=== PATIENT | female | born 1970 | race Caucasian/White ===

== ENCOUNTER 2019-12-17 11:08 | Day surgery (SDC) | payer OTHER ==
[~2019-12-17] VITALS: Ht 170.2 cm; Wt 63.4 kg
[~2019-12-17 11:08] MED LIST: ACET325T14 PO; ALLERGY MEDS; CHOL10003 PO; IBUP200C8 PO; L.AC1CAP6 PO; SLEEPING PILL
[2019-12-17] MEDS ORDERED: INDOCYANINE GREEN 25 MG VIAL IV STA (11:14)
[2019-12-17] MEDS ORDERED: FENTANYL PF 250 MCG/5ML ONE (11:44)
[2019-12-17] MEDS ORDERED: MIDAZOLAM 1 MG/ML, 2ML ONE (11:44)
[2019-12-17 11:50] VITALS: BP 123/88
[2019-12-17 11:57] LABS: HCG UR SG 1.022 (1.003-1.030)
[2019-12-17] MEDS ORDERED: LACTATED RINGERS 1,000 ML IV SCH (12:00)
[2019-12-17] MEDS ORDERED: OXYcodone 5 MG/5 ML ORAL.SOL UDC PO PRN (12:00)
[2019-12-17] MEDS ORDERED: LABETALOL 5MG/ML, 20ML IV PRN (12:00)
[2019-12-17] MEDS ORDERED: HYDROmorphone 1 MG/ML, 1ML INJ IVPush PRN (12:00)
[2019-12-17] MEDS ORDERED: CHLORHEXIDINE 15 ML UDC MM ONE (12:00)
[2019-12-17] MEDS ORDERED: ACETAMINOPHEN 500 MG TABLET PO ONE (12:00)
[2019-12-17] MEDS ORDERED: SCOPOLAMINE 1MG PATCH TD SCH (12:00)
[2019-12-17] MEDS ORDERED: FENTANYL PF 100 MCG/2ML IV PRN (12:00)
[2019-12-17] MEDS ORDERED: PROMETHAZINE 25 MG/ML, 1ML IVPush PRN (12:00)
[2019-12-17] MEDS ORDERED: INDOCYANINE GREEN 25 MG VIAL ONE (12:00)
[2019-12-17] MEDS ORDERED: DIPHENHYDRAMINE 50 MG/ML, 1ML IVPush PRN (12:00)
[2019-12-17] MEDS ORDERED: ONDANSETRON 2MG/ML, 2ML IVPush PRN (12:00)
[2019-12-17] MEDS ORDERED: CHLORHEXIDINE 15 ML UDC ONE (12:03)
[2019-12-17] MEDS ORDERED: BUPIVACAINE/PF 0.5% ONE (12:22)
[2019-12-17] MEDS ORDERED: EPINEPHRINE 1 MG/ML, 1ML ONE (12:23)
[2019-12-17] MEDS ORDERED: PROPOFOL 10 MG/ML, 20ML ONE (12:49)
[2019-12-17] MEDS ORDERED: ONDANSETRON 2MG/ML, 2ML ONE ×2 (12:49→14:19)
[2019-12-17] MEDS ORDERED: NEOSTIGMINE 1 MG/ML, 10ML ONE (12:49)
[2019-12-17] MEDS ORDERED: DEXAMETHASONE 4 MG/ML, 1ML ONE (12:49)
[2019-12-17] MEDS ORDERED: CEFAZOLIN 1,000 MG ONE (12:49)
[2019-12-17] MEDS ORDERED: GLYCOPYRROLATE 0.2MG/1ML, 5ML ONE (12:49)
[2019-12-17] MEDS ORDERED: PROMETHAZINE 25 MG/ML, 1ML ONE (14:23)
[2019-12-17] MEDS ORDERED: MEPERIDINE/PF 25MG/ML,1ML ONE (14:23)
[2019-12-17] MEDS: MEPERIDINE/PF 25MG/0.5ML IVPush PRN ×2 (14:30→14:55)
== END 2019-12-17 17:55 | disposition home or self-care (01) ==
LOC: OUT 11:08
PROVIDERS: ATTEND Surgery
DX: K80.10 Calculus of gallbladder with chronic cholecystitis without obstruction (principal); K42.9 Umbilical hernia without obstruction or gangrene; F41.9 Anxiety disorder, unspecified; Z20.828 Contact with and (suspected) exposure to other viral communicable diseases; Z88.2 Allergy status to sulfonamides; Z88.0 Allergy status to penicillin; Z79.899 Other long term (current) drug therapy; Z72.89 Other problems related to lifestyle; Z82.49 Family history of ischemic heart disease and other diseases of the circulatory system; Z88.1 Allergy status to other antibiotic agents; Z98.890 Other specified postprocedural states
CPT/HCPCS: 36415; 47563; 49585; 81025; 87635; 88304; J0171; J0690; J1100; J2175; J2250; J2405; J2550; J2704; J2710; J3010; J7120